=== PATIENT | female | born 1980 | race Caucasian/White ===

== ENCOUNTER 2016-08-05 04:57 | Emergency (ER) | payer BC ==
[~2016-08-05] VITALS: Ht 172.7 cm; Wt 122.5 kg
[2016-08-05 05:08] VITALS: BP_SYST 131
[2016-08-05] MEDS ORDERED: KETOROLAC TROMETHAMINE 60 MG/2 ML VIAL IM ONE (06:00)
[2016-08-05 06:51] VITALS: BP_SYST 121
== END 2016-08-05 06:51 | disposition home or self-care (01) ==
LOC: SED 04:57
DX: S43.401A Unspecified sprain of right shoulder joint, initial encounter (principal); E78.00 Pure hypercholesterolemia, unspecified; E11.9 Type 2 diabetes mellitus without complications; Z88.5 Allergy status to narcotic agent; X58.XXXA Exposure to other specified factors, initial encounter; Y93.43 Activity, gymnastics; Y92.39 Other specified sports and athletic area as the place of occurrence of the external cause; Y99.8 Other external cause status
CPT/HCPCS: 73030; 96372; 99284; J1885

== ENCOUNTER 2017-06-23 12:51 | Emergency (ER) | payer BC, OTHER ==
[~2017-06-23] VITALS: Ht 172.7 cm; Wt 124.7 kg
[2017-06-23 13:03] VITALS: BP_SYST 145
[2017-06-23] MEDS ORDERED: IBUPROFEN 800 MG TABLET PO ONE (13:45)
[2017-06-23] MEDS ORDERED: ALBUTEROL SULFATE 0.083% 2.5 MG/3 ML VIAL.NEB INH ONE (13:45)
[2017-06-23] MEDS: HYDROcodone/ACETAMIN 7.5-325 MG TAB PO ONE ×2 (13:53→13:58)
[2017-06-23 14:06] VITALS: BP_SYST 128
== END 2017-06-23 14:06 | disposition home or self-care (01) ==
LOC: SED 12:51
DX: B34.9 Viral infection, unspecified (principal); E11.9 Type 2 diabetes mellitus without complications; Z88.5 Allergy status to narcotic agent
CPT/HCPCS: 94640; 99283

== ENCOUNTER 2019-04-15 06:05 | Day surgery (SDC) | payer OTHER ==
[~2019-04-15] VITALS: Ht 172.7 cm; Wt 85.7 kg
[2019-04-15] MEDS ORDERED: CEFAZOLIN SOD 2 GM in D5W 50 ML IV ONE (06:45)
[2019-04-15] MEDS ORDERED: LR 1,000 ML IV SCH (08:24)
[2019-04-15] MEDS ORDERED: HYDROmorphone 1 MG INJ. 1 MG/ML AMPUL IVP PRN ×2 (08:30)
[2019-04-15] MEDS ORDERED: HYDROmorphone 2 MG/ML VIAL IVP PRN (08:30)
[2019-04-15] MEDS ORDERED: METOCLOPRAMIDE HCL 10 MG/2 ML VIAL IVP PRN (08:30)
[2019-04-15] MEDS ORDERED: ONDANSETRON HCL 4 MG/2 ML VIAL IVP PRN (09:45)
[2019-04-15] MEDS ORDERED: HYDROcodone/ACETAMIN 5-325 MG TAB (NORCO/ VICODIN) PO PRN (09:45)
[2019-04-15] MEDS ORDERED: OXYCODONE/ACETAMINOPHEN 5-325 TABLET PO PRN ×2 (09:45)
[2019-04-15] MEDS ORDERED: NS IRRIG SOLN 1000 ML IR ONE (09:55)
[2019-04-15] MEDS ORDERED: MIDAZOLAM HCL 5 MG/ML VIAL (VERSED) IV ONE (09:55)
[2019-04-15] MEDS ORDERED: LR 1,000 ML IV.SOLN IV ONE (09:55)
[2019-04-15] MEDS ORDERED: PROPOFOL 200MG/ 20ML VIAL (DIPRIVAN) IV ONE (09:55)
[2019-04-15] MEDS ORDERED: fentaNYL CITRATE 250 MCG/5 ML AMP ONE (09:55)
[2019-04-15] MEDS ORDERED: ROCURONIUM BROMIDE 10 MG/ML (ZEMURON) ONE (09:55)
[2019-04-15] MEDS ORDERED: SEVOFLURANE 15 MIN GAS INH ONE (09:55)
[2019-04-15] MEDS ORDERED: BUPIVACAINE /PF 0.5% 30 ML VIAL ONE (09:55)
[2019-04-15] MEDS ORDERED: WATER FOR IRRIGATION,STERILE 1,000 ML IRRIG.SOLN IR ONE (09:55)
[2019-04-15] MEDS ORDERED: ONDANSETRON HCL 4 MG/2 ML VIAL ONE (09:55)
[2019-04-15] MEDS ORDERED: HYDROmorphone 1 MG INJ. 1 MG/ML AMPUL ONE (10:16)
[2019-04-15] MEDS ORDERED: METOCLOPRAMIDE HCL 10 MG/2 ML VIAL ONE (10:16)
[2019-04-15] MEDS ORDERED: OXYCODONE/ACETAMINOPHEN 5-325 TABLET ONE (11:21)
[2019-04-15 12:58] VITALS: BP_SYST 112
== END 2019-04-15 14:15 | disposition home or self-care (01) ==
LOC: SDS 06:05 → SMU 06:05 → SDS 14:15
PROVIDERS: ATTEND Specialist
DX: R10.2 Pelvic and perineal pain (principal); D25.9 Leiomyoma of uterus, unspecified; N92.0 Excessive and frequent menstruation with regular cycle; N80.9 Endometriosis, unspecified; D25.2 Subserosal leiomyoma of uterus; N83.8 Other noninflammatory disorders of ovary, fallopian tube and broad ligament; N73.6 Female pelvic peritoneal adhesions (postinfective); G47.33 Obstructive sleep apnea (adult) (pediatric); E11.9 Type 2 diabetes mellitus without complications; E66.3 Overweight; J06.9 Acute upper respiratory infection, unspecified; M35.9 Systemic involvement of connective tissue, unspecified; M53.3 Sacrococcygeal disorders, not elsewhere classified; G89.29 Other chronic pain; E03.9 Hypothyroidism, unspecified; M79.7 Fibromyalgia; Z79.899 Other long term (current) drug therapy
CPT/HCPCS: 58552; 88305; 88307; C1727; J0690; J1170; J2250; J2405; J2704; J2765; J3010; J3490; J7060; J7120; S2900; E0190

== ENCOUNTER 2020-09-20 15:53 | Emergency (ER) | payer OTHER ==
[~2020-09-20] VITALS: Ht 172.7 cm; Wt 70.3 kg
[2020-09-20 16:00] VITALS: BP_SYST 135
[2020-09-20] MEDS ORDERED: ALPRAZolam 0.25 MG TABLET PO ONE (16:15)
[2020-09-20] MEDS ORDERED: ALPRAZolam 0.25 MG TABLET ONE (16:23)
[2020-09-20 16:34] LABS: BASOPHILS # (AUTO) 0.1 K/uL (0.0-0.2); BASOPHILS % (AUTO) 0.5 % (0.0-2.0); EOSINOPHILS % (AUTO) 0.2 % (0.0-4.0); HEMATOCRIT 37.9 % (36-48); HEMOGLOBIN 12.7 g/dL (12.0-16.0); LYMPHOCYTES # (AUTO) 2.8 K/uL (1.0-5.5); MEAN CORPUSCULAR HEMOGLOBIN 31 pg (27-31); MEAN CORPUSCULAR HGB CONC 34 % (32-36); MEAN CORPUSCULAR VOLUME 92 fL (79.0-98.0); MONOCYTES # (AUTO) 0.5 K/uL (0.0-1.0); NEUTROPHILS # (AUTO) 7.5 K/uL (1.8-7.7); NEUTROPHILS % (AUTO) 68.3 % (40.0-70.0); PLATELET COUNT (AUTO) 290 K/uL (130-430); RED BLOOD CELL COUNT(AUTO) 4.12 MIL/uL (4.2-6.2); RED CELL DISTRIBUTION WIDTH 14.4 % (9.0-15.0); WHITE BLOOD COUNT (AUTO) 10.9 K/uL (4.8-10.8)
[2020-09-20 17:11] LABS: ANION GAP 7 (5-15); CALCIUM 8.4 mg/dL (8.4-11.0); CHLORIDE 102 mmol/L (98-107); CREATININE 0.66 mg/dL (0.55-1.30); GLUCOSE 115 mg/dL (70-99); POTASSIUM 3.8 mmol/L (3.5-5.1); SODIUM SERUM 138 mmol/L (136-145); UREA NITROGEN, BLOOD 10 mg/dL (8-21)
[2020-09-20 17:14] LABS: GFR AFRICAN AMERICAN 127 mL/min (>90)
[2020-09-20 17:17] LABS: ALANINE AMINOTRANSFERASE 18 U/L (12-78); ALBUMIN 3.5 g/dL (3.4-4.8); AMYLASE 47 U/L (0-100); ASPARTATE AMINOTRANSFERASE 21 U/L (10-37); LIPASE 90 U/L (73-393); TOTAL BILIRUBIN 0.4 mg/dL (0.0-1.0)
[2020-09-20 17:18] LABS: ALCOHOL, BLOOD < 3 mg/dL (<10)
[2020-09-20 17:25] LABS: PROTHROMBIN TIME 9.9 SECS (9.5-12.5)
[2020-09-20 17:52] LABS: ACETONE, SERUM NEGATIVE (NEGATIVE)
[2020-09-20 19:10] VITALS: BP_SYST 126
== END 2020-09-20 19:10 | disposition home or self-care (01) ==
LOC: SED 15:53
DX: S09.90XA Unspecified injury of head, initial encounter (principal); R20.2 Paresthesia of skin; F10.10 Alcohol abuse, uncomplicated; M54.2 Cervicalgia; E11.9 Type 2 diabetes mellitus without complications; Z88.5 Allergy status to narcotic agent; Y90.0 Blood alcohol level of less than 20 mg/100 ml; W18.39XA Other fall on same level, initial encounter; Y93.89 Activity, other specified; Y92.89 Other specified places as the place of occurrence of the external cause; Y99.8 Other external cause status
CPT/HCPCS: 36415; 70450; 72125; 76376; 80053; 82009; 82150; 83605; 83690; 85025; 85610; 85730; 99285; G0482

== ENCOUNTER 2021-08-15 19:49 | Emergency (ER) | payer OTHER ==
[~2021-08-15] VITALS: Ht 172.7 cm; Wt 104.3 kg
[2021-08-15 19:54] VITALS: BP_SYST 157
[2021-08-15 20:24] LABS: BILIRUBIN,URINE NEGATIVE (NEGATIVE); BLOOD, URINE 1+ (NEGATIVE); CLARITY/URINE CLEAR (CLEAR); COLOR,URINE YELLOW (YELLOW); GLUCOSE,URINE NEGATIVE (NEGATIVE); KETONES,URINE NEGATIVE (NEGATIVE); LEUKOCYTE ESTERASE ,URINE NEGATIVE (NEGATIVE); NITRITE, URINE NEGATIVE (NEGATIVE); PH,URINE 5.5 (5.0-8.0); PROTEIN URINE NEGATIVE (NEGATIVE); UROBILINOGEN,URINE 0.2 (0.2-1.0)
[2021-08-15 20:36] LABS: BACTERIA,URINE FEW /HPF (None Seen); WBC,URINE NONE SEEN /HPF (0-3)
[2021-08-15 20:42] LABS: BASOPHILS % (AUTO) 0.2 % (0.0-2.0); EOSINOPHILS # (AUTO) 0.1 K/uL (0.0-0.4); EOSINOPHILS % (AUTO) 0.8 % (0.0-4.0); HEMATOCRIT 42.9 % (36-48); HEMOGLOBIN 14.4 g/dL (12.0-16.0); LYMPHOCYTES # (AUTO) 1.4 K/uL (1.0-5.5); MEAN CORPUSCULAR HEMOGLOBIN 30 pg (27-31); MEAN CORPUSCULAR HGB CONC 34 % (32-36); MEAN CORPUSCULAR VOLUME 90 fL (79.0-98.0); MONOCYTES # (AUTO) 0.3 K/uL (0.0-1.0); MONOCYTES % (AUTO) 2.7 % (1.7-9.3); NEUTROPHILS % (AUTO) 84.3 % (40.0-70.0); PLATELET COUNT (AUTO) 245 K/uL (130-430); RED BLOOD CELL COUNT(AUTO) 4.79 MIL/uL (4.2-6.2); RED CELL DISTRIBUTION WIDTH 14.7 % (9.0-15.0); WHITE BLOOD COUNT (AUTO) 11.8 K/uL (4.8-10.8)
[2021-08-15 20:55] LABS: CALCIUM 8.1 mg/dL (8.4-11.0); CREATININE 0.84 mg/dL (0.55-1.30)
[2021-08-15 21:08] LABS: ALBUMIN 3.6 g/dL (3.4-4.8); TOTAL BILIRUBIN 0.6 mg/dL (0.0-1.0)
[2021-08-15 21:11] LABS: C-REACTIVE PROTEIN QUANT 2.2 mg/dL (0-0.5)
--- NOTE | 2021-08-15 21:11 | NUR ---
Patient to ER bed 8 to gown for evaluation. Side rails up. Report given to Liz MORALES(katie).
--- NOTE | 2021-08-15 21:14 | NUR ---
Pt brought by self, A&Ox4,pt presents to ER with upper abd pain and diarrhea since today, skin pink and warm, cap refill <3, pt denies N/V, skin pink and warm, cap refill <3, VSS
--- NOTE | 2021-08-15 21:34 | NUR ---
40 YR OLD AOX4, AMBULATORY FEMALE WITH COMPLAINT OF ABDOMINAL PAIN 7/10 WITH NAUSEA AND DIARRHEA. PT DENIES VOMITING. PT REPORTS HX OF THYROID DISEASE AND POSSIBLE AUTO IMMUNE DISORDER THAT IS UNDER SURVEILLANCE BY PRIMARY MD. PT IN BED ON CRADIAC MONITOR, PENDING MD EVALUATION
[2021-08-15] MEDS ORDERED: HYDR-3917 PO (22:36)
[2021-08-15] MEDS ORDERED: IBUP-1969 PO (22:36)
[2021-08-15] MEDS ORDERED: KETOROLAC TROMETHAMINE 60 MG/2 ML VIAL IM ONE (22:45)
--- NOTE | 2021-08-15 23:00 | NUR ---
PT UNSURE OF CONTINUED ABDOMINAL PAIN AFTER ADMINISTRATION OR TORADOL INJECTION. PT CONCERNED ABOUT STOMACH BUBBLING WITH DIARRHEA, MD VILLA NOTIFIED. MD VILLA AT THE BEDSIDE TO RE EVALUATE PT IN PRESENCE OF RN.
[2021-08-16] MEDS ORDERED: MAG HYDROX/AL HYDROX/SIMETH 30 ML, LIDOCAINE VISCOUS 2% 15ML (PO) 15 ML, DICYCLOMINE HC... PO ONE ×3
[2021-08-16] MEDS ORDERED: LIDOCAINE VISCOUS 2%, 15 ML UDC ONE ×2 (00:15→00:17)
[2021-08-16] MEDS ORDERED: DICYCLOMINE HCL 10 MG/5 ML SOLUTION ONE (00:15)
--- NOTE | 2021-08-16 00:56 | NUR ---
PT UNABLE TO GIVE STOOL SAMPLE PER MD ORDER OF JAKE. MD NOTIFIED
[2021-08-16] MEDS ORDERED: PRO40 PO (01:59)
[2021-08-16] MEDS ORDERED: ONDA-8 TL (01:59)
[2021-08-16] MEDS ORDERED: ANT30 PO (02:01)
--- NOTE | 2021-08-16 02:19 | NUR ---
PT PROVIDED WITH DISCHARGE PAPERWORK AND NEW PRESCRIPTIONS. PT PROVIDED WITH OPPUTUNITY TO ASK QUESTIONS. ALL QUESTIONS ANSWERED. PT ENCOURAGED TO FOLLOW UP WITH PRIMARY MD AND REQUEST A REFERRAL FOR CORRESPONDENCE CLERK. PT DISCHARGED WITH ALL BELONGINGS IN STABLE CONDITION.
[2021-08-16 02:31] VITALS: BP_SYST 157
== END 2021-08-16 02:32 | disposition home or self-care (01) ==
LOC: SED 19:49
DX: R10.11 Right upper quadrant pain (principal); E11.9 Type 2 diabetes mellitus without complications; Z88.6 Allergy status to analgesic agent
CPT/HCPCS: 36415; 74176; 76376; 80053; 81000; 81025; 82150; 83690; 84703; 85025; 86140; 96372; 99284; J1885; J2001

== ENCOUNTER 2021-12-24 06:36 | Emergency (ER) | payer OTHER ==
[~2021-12-24] VITALS: Ht 172.7 cm; Wt 102.5 kg
[~2021-12-24 06:36] MED LIST: ANT30 PO; HYDR-3917 PO; ONDA-8 TL; PRO40 PO
[2021-12-24 06:40] VITALS: BP_SYST 120
[2021-12-24] MEDS ORDERED: MAG HYDROX/AL HYDROX/SIMETH 30 ML, DICYCLOMINE HCL 20 MG, LIDOCAINE VISCOUS 2% 15ML (PO... PO ONE ×3 (08:30)
[2021-12-24] MEDS ORDERED: NACL 0.9% 1,000 ML IV ONE (08:30)
[2021-12-24] MEDS ORDERED: PANTOPRAZOLE SODIUM 40 MG/VIAL (PROTONIX) IVP ONE (08:30)
[2021-12-24 08:49] LABS: BASOPHILS % (AUTO) 0.2 % (0.0-2.0); EOSINOPHILS # (AUTO) 0.2 K/uL (0.0-0.4); EOSINOPHILS % (AUTO) 2.1 % (0.0-4.0); HEMATOCRIT 40.7 % (36-48); LYMPHOCYTES # (AUTO) 2.3 K/uL (1.0-5.5); LYMPHOCYTES % (AUTO) 25.7 % (20.5-51.5); MEAN CORPUSCULAR VOLUME 90 fL (79.0-98.0); MONOCYTES # (AUTO) 0.7 K/uL (0.0-1.0); MONOCYTES % (AUTO) 8.4 % (1.7-9.3); NEUTROPHILS # (AUTO) 5.6 K/uL (1.8-7.7); NEUTROPHILS % (AUTO) 63.6 % (40.0-70.0); PLATELET COUNT (AUTO) 235 K/uL (130-430); RED BLOOD CELL COUNT(AUTO) 4.55 MIL/uL (4.2-6.2); WHITE BLOOD COUNT (AUTO) 8.9 K/uL (4.8-10.8)
[2021-12-24] MEDS ORDERED: LIDOCAINE VISCOUS 2%, 15 ML UDC ONE (09:02)
[2021-12-24] MEDS ORDERED: MAG-AL HYDROX/SIMETH 30 ML UDC ONE (09:02)
[2021-12-24 09:03] LABS: CREATININE 0.78 mg/dL (0.55-1.30); POTASSIUM 3.8 mmol/L (3.5-5.1)
[2021-12-24 09:08] LABS: ALBUMIN 3.1 g/dL (3.4-4.8); TOTAL BILIRUBIN 0.4 mg/dL (0.0-1.0)
[2021-12-24] MEDS ORDERED: LOPE2CAP PO (10:13)
[2021-12-24] MEDS ORDERED: OMEP40CA20 PO (10:13)
[2021-12-24] MEDS ORDERED: DICY10CA13 PO (10:13)
[2021-12-24] MEDS ORDERED: PEPTAB PO (10:14)
[2021-12-24 11:34] VITALS: BP_SYST 118
[2021-12-24 12:42] LABS: HEMOGLOBIN 13.4 g/dL (12.0-16.0); MEAN CORPUSCULAR HEMOGLOBIN 30 pg (27-31); MEAN CORPUSCULAR HGB CONC 33 % (32-36)
== END 2021-12-24 11:35 | disposition home or self-care (01) ==
LOC: SED 06:36
DX: K29.51 Unspecified chronic gastritis with bleeding (principal); R19.7 Diarrhea, unspecified; R19.5 Other fecal abnormalities; E11.9 Type 2 diabetes mellitus without complications; K21.9 Gastro-esophageal reflux disease without esophagitis; Z88.6 Allergy status to analgesic agent; Z79.899 Other long term (current) drug therapy
CPT/HCPCS: 99283; 96374; 96361; 80053; 83690; 85025; 87046 ×2; 87045; 87230; 89055; 36415; 82272; 87177; J2001; C9113; J7030

== ENCOUNTER 2022-08-08 14:01 | Emergency (ER) | payer OTHER ==
[~2022-08-08] VITALS: Ht 170.2 cm; Wt 107.5 kg
[~2022-08-08 14:01] MED LIST changes: +DICY10CA13 PO; +LOPE2CAP PO; +OMEP40CA20 PO; +PEPTAB PO
[2022-08-08 14:11] VITALS: BP_SYST 123
[2022-08-08] MEDS ORDERED: IBUP-1969 PO (15:47)
[2022-08-08] MEDS ORDERED: TRAM50TA2 PO (15:47)
[2022-08-08 16:15] VITALS: BP_SYST 149
== END 2022-08-08 16:12 | disposition home or self-care (01) ==
LOC: SED 14:01
DX: S00.83XA Contusion of other part of head, initial encounter (principal); E11.9 Type 2 diabetes mellitus without complications; E78.5 Hyperlipidemia, unspecified; K21.9 Gastro-esophageal reflux disease without esophagitis; Z88.5 Allergy status to narcotic agent; Z88.6 Allergy status to analgesic agent; Z79.899 Other long term (current) drug therapy; W22.8XXA Striking against or struck by other objects, initial encounter; Y93.89 Activity, other specified; Y92.89 Other specified places as the place of occurrence of the external cause; Y99.8 Other external cause status
CPT/HCPCS: 70450-TC; 76376; 99284